=== PATIENT | male | born 1935 | race Caucasian/White ===

== ENCOUNTER 2021-05-24 05:22 | Day surgery (SDC) | payer MEDICARE, OTHER ==
[2021-05-18 14:17] LABS: BASOPHILS % (AUTO) 0.5 % (0-1); EOSINOPHILS # (AUTO) 0.1 X10'3 (0-0.9); EOSINOPHILS % (AUTO) 1.5 % (0-6); LYMPHOCYTES # (AUTO) 1.6 X10'3 (1.1-4.8); LYMPHOCYTES % (AUTO) 33.2 % (21-51); MEAN CORPUSCULAR HGB CONC 32.7 g/dL (33.0-36.5); MEAN CORPUSCULAR VOLUME 91.5 FL (78-98); MEAN PLATELET VOLUME 7.8 FL (7.4-10.4); MONOCYTES # (AUTO) 0.4 X10'3 (0-0.9); NEUTROPHILS # (AUTO) 2.7 X10'3 (1.8-7.7); NEUTROPHILS % (AUTO) 55.8 % (42-75); PRE OP HEMOGLOBIN 13.4 g/dL (14.0-17.9); PRE OP PLATELET COUNT 256 X10'3 (140-440); RED BLOOD COUNT 4.48 X10'6 (4.70-6.10); RED CELL DISTRIBUTION WIDTH 14.1 % (11.5-14.5)
[2021-05-18 14:41] LABS: ALBUMIN 3.9 G/DL (3.4-5.0); ALBUMIN/GLOBULIN RATIO 1.3 (1.1-1.5); ALKALINE PHOSPHATASE 23 IU/L (46-116); BLOOD UREA NITROGEN 30 MG/DL (7-18); BUN/CREATININE RATIO 15.8 (5.4-32.0); CALCIUM 8.9 MG/DL (8.5-10.1); CHLORIDE 106 MMOL/L (99-107); PRE OP ALT 30 U/L (30-65); PRE OP ANION GAP 9 (8-16); PRE OP AST 22 U/L (10-37); PRE OP BILIRUB, TOTAL 0.4 MG/DL (0.0-1.0); PRE OP GLUCOSE 112 MG/DL (70-104); PRE OP POTASSIUM 4.2 MMOL/L (3.4-5.1); PRE OP SODIUM 144 MMOL/L (135-145); TOTAL CARBON DIOXIDE 28.8 MMOL/L (24-32); TOTAL PROTEIN 6.9 G/DL (6.4-8.2); eGFR 34 ML/MIN
[~2021-05-24] VITALS: Ht 175.3 cm; Wt 91.5 kg
[2021-05-24] VITALS (8 sets, daily range): BP systolic 125–155; BP diastolic 68–104
[~2021-05-24 05:22] MED LIST: ATOR40TA72 PO; BENA40TA72 PO; CARV3.123 PO; FINA5TAB11 PO; GABA300T25 PO; [UNRECOGNIZED DRUG - OTHER]; [UNRECOGNIZED DRUG - OTHER]
[2021-05-24] MEDS ORDERED: cefazolin/dext.iso 2gm/50ml IV ONE (05:30)
[2021-05-24] MEDS ORDERED: famotidine 20mg tablet PO ONE (05:30)
[2021-05-24] MEDS ORDERED: DOCUMENT DATE & TIME OF BETA-BLOCKER PO ONE (05:30)
[2021-05-24] MEDS ORDERED: ringers solution, lacted 1,000 ML IV SCH ×2 (06:40→07:10)
[2021-05-24] MEDS ORDERED: BUPIVAcaine 0.5% inj/PF 30 ML ONE (07:04)
[2021-05-24] MEDS ORDERED: hydrALAZINE 20mg/ml inj. IV PRN (07:10)
[2021-05-24] MEDS ORDERED: morphine 4 MG/ML inj SYRINge IV PRN (07:10)
[2021-05-24] MEDS ORDERED: fentaNYL/PF 50MCG/1 ML 2ML syringe IV PRN ×2 (07:10)
[2021-05-24] MEDS ORDERED: morphine 2 MG/ML inj. syringe IV PRN (07:10)
[2021-05-24] MEDS ORDERED: labetalol 20mg/4ml (5mg/ml) syringe IV PRN (07:10)
[2021-05-24] MEDS ORDERED: ondansetron/PF 4mg/2ml inj IV PRN (07:10)
[2021-05-24] MEDS ORDERED: LIDOcaine 0.5% (5mg/ml) 50ml vial ONE (07:14)
[2021-05-24] MEDS ORDERED: BUPIVAcaine 0.5% inj/PF 30 ml vial IJ ONE (08:00)
[2021-05-24] MEDS ORDERED: FENTANYL CITRATE/PF 50 MCG/1 ML VIAL ONE (08:03)
[2021-05-24] MEDS ORDERED: midazolam 1 mg/ML 2ml injection ONE (08:03)
--- NOTE | 2021-05-24 08:26 | NUR ---
Received from OR via [facility] IN STABLE CONDTION , accompanied by Anesthesiologist and POWER SYSTEM ELECTRICAL ENGINEER report given by POWER SYSTEM ELECTRICAL ENGINEER AND Anesthesiolgist. Addendum: 05/24/21 at 0949 by Laury Aguilar RN Amended: Links added.
--- NOTE | 2021-05-24 09:36 | NUR ---
PATIENT DISCHARGED FROM PACU IN STABLE CONDITION AFTER WRITTEN AND VERBAL DISCHARGE INSTRUCTIONS GIVEN. PATIENT GAVE VERBAL UNDERSTANDING OF INSTRUCTIONS GIVEN. PATIENT LEFT FACILITY VIA WHEELCHAIR WITH RN. Addendum: 05/24/21 at 1000 by Laury Aguilar RN Amended: Links added.
== END 2021-05-24 09:36 | disposition home or self-care (01) ==
LOC: PAS 05:22
PROVIDERS: ATTEND Orthopaedic Surgery Hand Surgery
DX: G56.02 Carpal tunnel syndrome, left upper limb (principal); F41.1 Generalized anxiety disorder; M41.9 Scoliosis, unspecified; M19.071 Primary osteoarthritis, right ankle and foot; J44.9 Chronic obstructive pulmonary disease, unspecified; E78.00 Pure hypercholesterolemia, unspecified; I11.9 Hypertensive heart disease without heart failure; G62.9 Polyneuropathy, unspecified; E66.9 Obesity, unspecified; Z68.30 Body mass index [BMI] 30.0-30.9, adult; Z20.822 Contact with and (suspected) exposure to COVID-19; Z79.899 Other long term (current) drug therapy; Z79.01 Long term (current) use of anticoagulants; Z72.89 Other problems related to lifestyle; Z87.891 Personal history of nicotine dependence; Z98.41 Cataract extraction status, right eye; Z98.42 Cataract extraction status, left eye; Z98.890 Other specified postprocedural states
CPT/HCPCS: 36415; 64721; 80053; 82948; 85025; J0690; J2250; J3010; J3490; J7030; S0020; U0003; U0005; Z7506; Z7512; A4215

== ENCOUNTER 2022-05-02 05:26 | Day surgery (SDC) | payer MEDICARE ==
[2022-04-28 10:56] LABS: BASOPHILS % (AUTO) 0.7 % (0-1); EOSINOPHILS # (AUTO) 0.2 X10'3 (0-0.9); EOSINOPHILS % (AUTO) 2.9 % (0-6); MEAN CORPUSCULAR HEMOGLOBIN 29.6 PG (27.0-31.0); MEAN CORPUSCULAR HGB CONC 33.2 g/dL (33.0-36.5); MEAN CORPUSCULAR VOLUME 89.1 FL (78-98); MEAN PLATELET VOLUME 7.7 FL (7.4-10.4); MONOCYTES # (AUTO) 0.5 X10'3 (0-0.9); MONOCYTES % (AUTO) 10.5 % (2-12); NEUTROPHILS # (AUTO) 2.5 X10'3 (1.8-7.7); NEUTROPHILS % (AUTO) 47.9 % (42-75); PRE OP HEMATOCRIT 40.8 % (42.0-52.0); PRE OP HEMOGLOBIN 13.6 g/dL (14.0-17.9); PRE OP PLATELET COUNT 280 X10'3 (140-440); RED BLOOD COUNT 4.58 X10'6 (4.70-6.10); RED CELL DISTRIBUTION WIDTH 15.6 % (11.5-14.5)
[2022-04-28 11:11] LABS: ALBUMIN/GLOBULIN RATIO 1.2 (1.1-1.5); ALKALINE PHOSPHATASE 28 IU/L (46-116); BLOOD UREA NITROGEN 46 MG/DL (7-18); BUN/CREATININE RATIO 23.8 (5.4-32.0); CALCIUM 9.3 MG/DL (8.5-10.1); CHLORIDE 103 MMOL/L (99-107); CREATININE 1.93 MG/DL (0.60-1.10); PRE OP ALT 25 U/L (30-65); PRE OP ANION GAP 7 (8-16); PRE OP AST 25 U/L (10-37); PRE OP BILIRUB, TOTAL 0.4 MG/DL (0.0-1.0); PRE OP GLUCOSE 95 MG/DL (70-104); PRE OP POTASSIUM 4.4 MMOL/L (3.4-5.1); PRE OP SODIUM 137 MMOL/L (135-145); TOTAL CARBON DIOXIDE 27.2 MMOL/L (24-32); TOTAL PROTEIN 7.3 G/DL (6.4-8.2); eGFR 33 ML/MIN
[~2022-05-02] VITALS: Ht 175.3 cm; Wt 85.8 kg
[2022-05-02] VITALS (7 sets, daily range): BP systolic 125–136; BP diastolic 69–78
[~2022-05-02 05:26] MED LIST changes: +ALBU8HFA INH; +ASPI-529 PO; +FENO145T25 PO; +FLUT50DI3 PO; +MAGNESIUM; +MULT-1085 PO; +OMEG-5 PO; +PROSTATE SUPPLEMENT; +TUMERIC; +VITAMIN D; -[UNRECOGNIZED DRUG - OTHER]; +ringers solution, lacted 1,000 ML IV SCH
[2022-05-02] MEDS ORDERED: albuterol 2.5 MG/3 ML nebule NEB PRN (05:30)
[2022-05-02] MEDS ORDERED: DOCUMENT DATE & TIME OF BETA-BLOCKER PO ONE (05:30)
[2022-05-02] MEDS ORDERED: famotidine 20mg tablet PO ONE (05:30)
[2022-05-02] MEDS ORDERED: ceFAZolin inj. 2,000 MG in dextrose 5%-water 100 ML IV ONE (05:30)
[2022-05-02] MEDS ORDERED: BUPIVAcaine/PF 5 mg/ml 10ml ONE (06:14)
[2022-05-02] MEDS ORDERED: morphine 4 MG/ML inj SYRINge IV PRN (08:05)
[2022-05-02] MEDS ORDERED: meperidine/PF 25mg/ml syringe IV PRN (08:05)
[2022-05-02] MEDS ORDERED: labetalol 20mg/4ml (5mg/ml) syringe IV PRN (08:05)
[2022-05-02] MEDS ORDERED: fentaNYL/PF 50MCG/1 ML 2ML syringe IV PRN ×2 (08:05)
[2022-05-02] MEDS ORDERED: acetaminophen 1,000mg/100ml IV 100 ML IV PRN (08:05)
[2022-05-02] MEDS ORDERED: ringers solution, lacted 1,000 ML IV SCH (08:05)
[2022-05-02] MEDS ORDERED: hydrALAZINE 20mg/ml inj. IV PRN (08:05)
[2022-05-02] MEDS ORDERED: morphine 2 MG/ML inj. syringe IV PRN (08:05)
[2022-05-02] MEDS ORDERED: proCHLORperazine 10 MG/2 ml inj IV PRN (08:05)
[2022-05-02] MEDS ORDERED: ondansetron/PF 4mg/2ml inj IV PRN (08:05)
[2022-05-02] MEDS ORDERED: midazolam 1 mg/ML 2ml injection ONE (08:18)
[2022-05-02] MEDS ORDERED: fentaNYL/PF 50MCG/1 ML 2ML syringe ONE (08:18)
[2022-05-02] MEDS ORDERED: BUPIVAcaine/PF 5 mg/ml 10ml IJ ONE (08:34)
[2022-05-02] MEDS ORDERED: BUPIVAcaine 0.5% W/EPI /PF 10ml vial IJ ONE (08:34)
--- NOTE | 2022-05-02 08:45 | NUR ---
Received from OR via [facility], accompanied by Anesthesiologist JESSICA and report given by Anesthesiolgist. PT ARRIVES AWAKE, AAOX4, NO COMPLAINTS OF PAIN. DRESSING TO R HAND CLEAN AND DRY. PT IS ABLE TO MOVE RIGHT HAND, WITHOUT COMPLAINT. Addendum: 05/02/22 at 0944 by Kelton Loja RN Amended: Links added.
--- NOTE | 2022-05-02 09:35 | NUR ---
PT DISCHARGED FROM PACU PER ORDER, MEETS DC CRITERIA. AAOX4, NO COMPLAINT OF PAIN. VERBALIZED UNDERSTANDING OF DC PAPERWORK. VERBAL DISCHARGE INSTRUCTIONS ALSO PROVIDED. PT DC INTO CARE OF SIGNIFICANT OTHER WITHOUT INCIDENT. AWARE OF FOLLOW UP PLAN OF CARE. Addendum: 05/02/22 at 0946 by Kelton Loja RN Amended: Links added.
== END 2022-05-02 09:35 | disposition home or self-care (01) ==
LOC: PAS 05:26
PROVIDERS: ATTEND Orthopaedic Surgery Hand Surgery
DX: G56.01 Carpal tunnel syndrome, right upper limb (principal); J44.9 Chronic obstructive pulmonary disease, unspecified; I10 Essential (primary) hypertension; I25.10 Atherosclerotic heart disease of native coronary artery without angina pectoris; M19.071 Primary osteoarthritis, right ankle and foot; F40.240 Claustrophobia; F41.9 Anxiety disorder, unspecified; E66.9 Obesity, unspecified; Z68.28 Body mass index [BMI] 28.0-28.9, adult; Z79.899 Other long term (current) drug therapy; Z79.82 Long term (current) use of aspirin; Z98.890 Other specified postprocedural states; Z98.49 Cataract extraction status, unspecified eye; Z72.89 Other problems related to lifestyle; Z95.5 Presence of coronary angioplasty implant and graft; Z87.891 Personal history of nicotine dependence
CPT/HCPCS: 36415; 64721; 80053; 82948; 85025; 93005; J0690; J2250; J3010; J3490; J7030; J7060; J7120; Z7506; Z7512; A4215; S0020